=== PATIENT | female | born 1940 | race Caucasian/White ===

== ENCOUNTER → 2017-09-26 13:58 | Outpatient (CLI) | payer MEDICARE ==
[~2017-09-26 13:58] MED LIST: CENTRUM SILVER1 EAC3 PO; ELIQUIS2.5 MG PO; KEFLEX500 MG PO; OSTEO BI-FLEX1 EAC1 PO; SYNTHROID75 MCG PO; ULTRAM50 MG PO; VITAMIN B-12500 MCG PO
[2017-10-05 11:33] VITALS: BMI 28.7
== END | disposition home or self-care (01) ==
LOC: D.LABREF 13:58 → EDBD 13:58
DX: M16.12 Unilateral primary osteoarthritis, left hip (principal); Z11.8 Encounter for screening for other infectious and parasitic diseases

== ENCOUNTER 2017-09-28 10:00 | Inpatient (IN) | payer MEDICARE, MEDICAID ==
[~2017-09-28] VITALS: Ht 162.6 cm; Wt 75.9 kg
--- NOTE | ~2017-09-28 | OP ---
PATIENT NAME: KARYN HERNANDEZ MEDICAL RECORD: [id number] :38 LOCATION:[facility] [place]- ADMISSION DATE:10/04/17 SURGEON: ESTUARDO GALLOWAY DO DATE OF OPERATION: 10/04/2017 PROCEDURE PERFORMED: Left total hip arthroplasty. PREOPERATIVE DIAGNOSIS: Severe left hip osteoarthritis. POSTOPERATIVE DIAGNOSIS: Severe left hip osteoarthritis. INDICATIONS: Ms. Hernandez is a 77-year-old female came to see me in my office after having severe left hip pain for quite some time and little to no motion of her hip. We got x-rays and it demonstrated severe osteoarthritis with complete collapse of the joint space superiorly, cysts in the head of the femur as well as in the acetabulum. She can barely walk, she said, without pain and she wanted something done. She was informed of the risks and benefits of the total hip and said that she wanted to proceed forward with it, including infection of her femur fracture, need for further surgery, damage to nerves or vessels. She was okay with proceeding forward. SURGEON: Estuardo Galloway DO. BLOOD LOSS: Approximately 200 mL. COMPLICATIONS: None. DESCRIPTION OF PROCEDURE: The patient was given a block per anesthesia in the preoperative area and taken to the operative suite, laid in supine position, given general anesthetic and intubated. She was then placed onto the [place] table and positioned. Once this was done, the left hip was prepped and draped in sterile fashion and timeout was performed and everyone was in agreement to correct side, site, and patient. She then, after the timeout, received Ancef and TXA. After this, incision commenced over the tensor fascia amanda muscle and careful dissection was made down to the fascia and it was incised and fascia was taken anteriorly, muscle belly posteriorly. Then, the fascia over the rectus was incised. Blood vessels were then encountered and tied off and coagulated with the Aquamantys as well as the plasma knife. The capsule was then exposed and retractors were placed around the capsule. Capsulotomy was performed and tagged. The neck was then exposed and the retractors were placed inside the capsule to expose the neck. A neck cut was made and then the femoral head was removed with a corkscrew. After this was done, the acetabulum was exposed. I used a Charnley retractor to put into place and the labrum was removed off the acetabulum and the pulvinar was coagulated and removed with the Aquamantys and the plasma knife. I then began reaming, reaming to a 48, and due to the cysts that were seen on the x-ray, we decided to use an OsseoTi acetabular shell from [employer]. This was then put into place and seemed to be in good position by x-ray. I then exposed the femur. The hook was put around the femur, attached to the table and the femur was extended and externally rotated and adducted exposing the femur nicely. The canal finder was then used to find the canal and then the cookie cutter was used to open up more laterally. I then began broaching and broached up to an 8, which seemed to have a very tight fit. It was very firm and trialed an 8 with a standard neck. This seemed to be in very good position and good length compared to the other side. We then put the stem down, the 8 stem, and trialed a standard to ensure again good length and this OPERATIVE REPORT [id number] KARYN HERNANDEZ was the case. We then put the final implant in and x-rays were taken, AP pelvis was seen to have equal lengths on the x-rays. Then the left hip was x-rayed as well, ensuring no distal femur fractures distal to the stem, none were seen. The wound was then thoroughly irrigated and the capsule was closed with #2 Ethibond in a vfshzm-rw-ebfrf fashion and then irrigated and dried up and then Anne was placed in the wound. Then the tensor fascia was closed, first with a amrooi-zp-ohady stitch and then a running 0 Vicryl locking running stitch. After irrigation, Anne was then placed on top of that layer and then the skin was closed with 2-0 Vicryl in inverted interrupted fashion and Prineo was placed on the skin. A Telfa and Tegaderm were then placed over the hip. The patient was awakened and taken to recovery in stable condition. Blood loss approximately 200 mL. TRANSINT:[id number] Voice Confirmation ID: [id number] DOCUMENT ID: [id number] ESTUARDO GALLOWAY DO at 1626 CC: [id number] DICTATION DATE: 10/04/17 1311 CHAR FILTER TANK TENDER: 10/04/17 1338 ADM IN [facility] [address] [id number]
[2017-09-28] MEDS ORDERED: CENTRUM SILVER1 EAC3 PO (10:53)
[2017-09-28] MEDS ORDERED: SYNTHROID75 MCG PO (10:53)
[2017-09-28] MEDS ORDERED: VITAMIN B-12500 MCG PO (10:54)
[2017-09-28] MEDS ORDERED: OSTEO BI-FLEX1 EAC1 PO (10:54)
[2017-09-28 11:38] LABS: BASOPHILS 0.2 % (0-2); HEMATOCRIT 44.2 % (36.0-48.0); HEMOGLOBIN 14.4 g/dL (12-16); IMMATURE GRANULOCYTES 0.2 % (0-5); LYMPHOCYTES 31.3 % (15-50); MCH 29.4 pg (26.0-34.0); MCHC 32.6 g/dL (31.0-37.0); MCV 90.2 fL (80.0-100.0); MEAN PLATELET VOLUME 11.1 fL (7.4-10.4); NEUTROPHILS 59.3 % (40-80); PLATELET COUNT 224 10x3/uL (130-400); RDW 13.4 % (11.5-14.5); WBC 8.2 10x3/uL (4.8-10.8)
[2017-09-28 11:51] LABS: APTT 26.9 SECONDS (22.8-39.4); INR 1.03 (0.85-1.17); PROTIME 13.1 SECONDS (11.6-15.0)
[2017-09-28 11:57] LABS: ANION GAP 15.3 mmol/L (8-16); CALCIUM 8.9 mg/dL (8.5-10.1); CARBON DIOXIDE 26.9 mmol/L (21.0-32.0); CREATININE - SERUM 0.8 mg/dL (0.6-1.3); POTASSIUM - SERUM 4.2 mmol/L (3.5-5.1)
[2017-09-28 12:39] LABS: APPEARANCE CLEAR (CLEAR); BILIRUBIN NEGATIVE (NEGATIVE); COLOR YELLOW (YELLOW); GLUCOSE NEGATIVE (NEGATIVE); KETONE NEGATIVE (NEGATIVE); NITRITE NEGATIVE (NEGATIVE); PROTEIN NEGATIVE (NEGATIVE); UROBILINOGEN NORMAL (NORMAL)
[2017-09-28 12:46] LABS: BACTERIA FEW /hpf (NONE SEEN); EPITHELIAL CELLS 0-5 /hpf (0-5); MUCUS <1+ /lpf (NONE SEEN); RED CELLS - URINE 0-5 /hpf (0-5); WHITE CELLS - URINE RARE /hpf (0-5)
[2017-10-04 09:27] VITALS: BP 169/97; BMI 28.9
[2017-10-04 17:31] VITALS: BP 144/72; BMI 28.7
[2017-10-04 20:00] VITALS: BP 156/69
[2017-10-05 04:00] VITALS: BP 127/48
[2017-10-05 06:18] LABS: HEMATOCRIT 37.1 % (36.0-48.0); MCH 29.3 pg (26.0-34.0); MCHC 32.3 g/dL (31.0-37.0); MCV 90.7 fL (80.0-100.0); MEAN PLATELET VOLUME 11.4 fL (7.4-10.4); RBC 4.09 10x6/uL (4.00-5.40); RDW 13.8 % (11.5-14.5); WBC 10.8 10x3/uL (4.8-10.8)
[2017-10-05 09:40] VITALS: BP 119/54
[2017-10-05 11:33] VITALS: Ht 162.6 cm; Wt 75.9 kg
[2017-10-05 11:48] VITALS: BP 138/59
[2017-10-05 16:28] VITALS: BP 137/51
[2017-10-05 20:00] VITALS: BP 157/54
[2017-10-06 04:00] VITALS: BP 143/65
[2017-10-06 05:15] LABS: HEMATOCRIT 36.1 % (36.0-48.0); HEMOGLOBIN 11.7 g/dL (12-16); MCH 29.1 pg (26.0-34.0); MCHC 32.4 g/dL (31.0-37.0); MCV 89.8 fL (80.0-100.0); MEAN PLATELET VOLUME 11.4 fL (7.4-10.4); RBC 4.02 10x6/uL (4.00-5.40); RDW 13.9 % (11.5-14.5); WBC 11.3 10x3/uL (4.8-10.8)
[2017-10-06] MEDS ORDERED: ELIQUIS2.5 MG PO (08:21)
[2017-10-06] MEDS ORDERED: ULTRAM50 MG PO (08:22)
[2017-10-06] MEDS ORDERED: KEFLEX500 MG PO (08:23)
[2017-10-06 09:02] VITALS: BP 156/66
== END 2017-10-06 12:21 | disposition home or self-care (01) | DRG 470 ==
LOC: D.SDCHOLD 10:00 → D.MS 10-04 07:28 → D.SDCHOLD 10-04 09:40 → D.MS 10-04 17:25
PROVIDERS: Orthopaedic Surgery
PROC: 0SRB0JZ Replacement of Left Hip Joint with Synthetic Substitute, Open Approach (ICD-10-PCS; principal; 2017-10-04 10:30)
DX: M16.12 Unilateral primary osteoarthritis, left hip (principal); I10 Essential (primary) hypertension; E03.9 Hypothyroidism, unspecified; Z87.891 Personal history of nicotine dependence

== ENCOUNTER → 2018-03-13 16:02 | Outpatient (CLI) | payer MEDICARE, MEDICAID ==
[2017-10-05 11:33] VITALS: BMI 28.7
== END | disposition home or self-care (01) ==
LOC: D.LABREF 16:02
DX: M17.12 Unilateral primary osteoarthritis, left knee (principal); Z11.8 Encounter for screening for other infectious and parasitic diseases

== ENCOUNTER 2018-04-12 10:00 | Inpatient (IN) | payer MEDICARE, MEDICAID ==
[~2018-04-12] VITALS: Ht 162.6 cm; Wt 72.7 kg
--- NOTE | ~2018-04-12 | OP ---
PATIENT NAME: KARYN HERNANDEZ MEDICAL RECORD: [id number] :38 [facility] [place] [place]:04/18/18 SURGEON: ESTUARDO GALLOWAY DO DATE OF OPERATION: 04/18/2018 PROCEDURE PERFORMED: Left total knee arthroplasty. PREOPERATIVE DIAGNOSIS: Severe end-stage left knee osteoarthritis. POSTOPERATIVE DIAGNOSIS: Severe end-stage left knee osteoarthritis. INDICATIONS: Ms. Hernandez is a 77-year-old female who presented to my office last year with severe osteoarthritis of the hip and the knee. She elected to do the hip first. We did try injections in the knee to no avail. She is tired of it affecting her activities of daily living. She had pain after sitting for a long time and going to get up and stiffness and she was tired of dealing with this. She cannot do her regular things she did during the day due to the knee pain and she wanted her left knee done. She is aware of the risks and benefits of the procedure including infection, bleeding, risk of damage to nerve or vessels, need for further surgery, and even . She consented to the procedure. SURGEON: Estuardo Galloway DO DESCRIPTION OF THE PROCEDURE: The patient was seen in the preoperative area and given a block by anesthesia and taken to the operative suite, laid in supine position, given general anesthetic and 2 grams Ancef. The left lower extremity was prepped and draped in sterile fashion with a tourniquet under the drapes above the knee. A timeout was performed and everyone was in agreement with the correct side, site, patient, and procedure. Once this was done, the incision was marked out of the anterior knee and then covered with Ioban and the Esmarch was used to exsanguinate the left lower extremity and tourniquet was inflated to 350 mmHg, it was up for 47 minutes during the procedure. Once the Esmarch was removed, incision began over the anterior knee in the midline. Careful dissection was made down to the capsule. Then, fresh 10 blade was used to do the capsulotomy and medial parapatellar approach. The fat pad was removed and the patella was everted and milled down in order to accommodate the patellar implant. The knee was then flexed up and the intramedullary guide was reamed first and then put into the femur. Distal femur was then cut and the tibia was exposed and cut and the lamina supervisor malted milk was used to remove the menisci with the knee in extension and the extra bone. The tibia was then recut in order to accommodate the implant better and extension block was then used and seemed to fit well and had the knee well balanced. The knee was then flexed up and the femur was measured to be a 65. The 4-in-1 cutting block was then put in place and the gordy wing was used to ensure it did not notch on the anterior cortex of the femur and it did not. It was then cut. The cuts were then removed and the block was removed and then the trial was then put into place and the tibial tray was floated in and ranged and the external rotation was marked on the tibial tray. The patella was then exposed and drilled for a 31, a 6.2 mm patella. The knee was then flexed up and lug holes were drilled through the trial on the femur. This was all then removed and thoroughly irrigated and the tibia was exposed and the tray was a 67 and found to fit the best and then this was punched, thoroughly irrigated, and cement was applied to the tibia and the tibial implant and then impacted into place. Excess cement was removed. The femur was then put on and a 12 poly was put in between them and leg was brought out into extension and then the patella was put into place and squeezers held on OPERATIVE REPORT [id number] KARYN HERNANDEZ and excess cement was removed from that as well. All the cement dried. Once the cement was dried, the trial then began and the tourniquet had been let down at 47 minutes. Once the tourniquet had been let down, all bleeding was coagulated. We then trialled up to a 16. The 16 poly seemed to fit the best and provide the most stability and range of motion and this was implanted, the anterior stabilized tibial poly. The locking mechanism was then put on the poly. The wound was then thoroughly irrigated and the capsule was closed with #1 Vicryl pop offs and stitched in pzyhfq-fa-xugds fashion and then the capsule was irrigated. Surgicel beads were then placed on the top of the capsule and then the skin was closed with 2-0 Vicryl in inverted interrupted fashion and a ZipLine was placed on the skin, Adaptic, 4 x 4s, ABD, Webril and Nilson wrap were then placed on the knee and a CARLIE hose stocking was placed up to the knee. The patient was awakened and taken to recovery, then in stable condition. BLOOD LOSS: Approximately 150 mL. COMPLICATIONS: None. TRANSINT:[id number] Voice Confirmation ID: [id number] DOCUMENT ID: [id number] ESTUARDO GALLOWAY DO at 1259 CC: [id number] DICTATION DATE: 04/18/18906 ASPHALT PAVING SUPERINTENDENT: 04/18/18 1051 ADM IN [id number] [place] [id number]
[2018-04-12 12:16] LABS: BASOPHILS 0.3 % (0-2); EOSINOPHILS 1.4 % (0-7); HEMATOCRIT 41.8 % (36.0-48.0); HEMOGLOBIN 13.8 g/dL (12-16); LYMPHOCYTES 34.5 % (15-50); MCH 29.9 pg (26.0-34.0); MCV 90.7 fL (80.0-100.0); MEAN PLATELET VOLUME 10.9 fL (7.4-10.4); MONOCYTES 7.5 % (2-11); NEUTROPHILS 56.3 % (40-80); PLATELET COUNT 191 10x3/uL (130-400); RBC 4.61 10x6/uL (4.00-5.40); RDW 14.3 % (11.5-14.5); WBC 7.2 10x3/uL (4.8-10.8)
[2018-04-12 12:23] LABS: APPEARANCE CLEAR (CLEAR); BILIRUBIN NEGATIVE (NEGATIVE); COLOR YELLOW (YELLOW); GLUCOSE NEGATIVE (NEGATIVE); KETONE NEGATIVE (NEGATIVE); NITRITE NEGATIVE (NEGATIVE); PROTEIN NEGATIVE (NEGATIVE); SPECIFIC GRAVITY 1.005 (1.005-1.020); UROBILINOGEN NORMAL (NORMAL)
[2018-04-12 12:27] LABS: APTT 26.2 SECONDS (22.8-39.4); INR 1.04 (0.85-1.17); PROTIME 13.2 SECONDS (11.6-15.0)
[2018-04-12 12:31] LABS: ANION GAP 11.1 mmol/L (8-16); CALCIUM 8.6 mg/dL (8.5-10.1); CARBON DIOXIDE 30.7 mmol/L (21.0-32.0); CREATININE - SERUM 0.8 mg/dL (0.6-1.3); POTASSIUM - SERUM 3.8 mmol/L (3.5-5.1)
[2018-04-18 05:55] VITALS: BP 160/77; BMI 27.5
[2018-04-18 17:30] VITALS: BP 107/61
[2018-04-18 17:43] VITALS: BP 157/80; BMI 27.5
[2018-04-18 21:36] VITALS: BP 139/62
[2018-04-19 06:04] LABS: HEMATOCRIT 33.6 % (36.0-48.0); HEMOGLOBIN 10.8 g/dL (12-16); MCH 29.5 pg (26.0-34.0); MCHC 32.1 g/dL (31.0-37.0); MCV 91.8 fL (80.0-100.0); RBC 3.66 10x6/uL (4.00-5.40); RDW 14.6 % (11.5-14.5); WBC 9.7 10x3/uL (4.8-10.8)
[2018-04-19 08:40] VITALS: BP 174/97
[2018-04-19 09:57] VITALS: Ht 162.6 cm; Wt 72.7 kg
[2018-04-19] MEDS ORDERED: ULTRAM50 MG PO (10:17)
[2018-04-19] MEDS ORDERED: KEFLEX500 MG PO (10:18)
[2018-04-19] MEDS ORDERED: ELIQUIS2.5 MG PO (10:18)
[2018-04-19 12:19] VITALS: BP 144/57
== END 2018-04-19 13:54 | disposition home or self-care (01) | DRG 470 ==
LOC: D.SDCHOLD 10:00 → D.MS 04-18 05:15 → D.SDCHOLD 04-18 05:15 → D.MS 04-18 17:11
PROVIDERS: Orthopaedic Surgery
PROC: 0SRD0J9 Replacement of Left Knee Joint with Synthetic Substitute, Cemented, Open Approach (ICD-10-PCS; principal; 2018-04-18 07:30)
DX: M17.12 Unilateral primary osteoarthritis, left knee (principal); D62 Acute posthemorrhagic anemia; E03.9 Hypothyroidism, unspecified

== ENCOUNTER → 2019-04-17 14:29 | Outpatient (CLI) | payer MEDICARE, MEDICAID ==
[2018-04-19 09:57] VITALS: BMI 27.5
== END | disposition home or self-care (01) ==
LOC: D.LABREF 14:29
PROVIDERS: ATTEND Orthopaedic Surgery
DX: M17.11 Unilateral primary osteoarthritis, right knee (principal); Z11.8 Encounter for screening for other infectious and parasitic diseases